=== PATIENT | female | born 1955 | race Caucasian/White ===

== ENCOUNTER → 2017-07-12 | Outpatient (CLI) | payer OTHER ==
[~2017-07-12] MED LIST: ASPIRIN325 PO; CENTRUM SILVER1 EAC4 PO; CIPRO500 M1 PO; FLAGYL500 M1 PO; IRON325 PO; METOPROLOL SUCC50 MG PO; SIMVASTATIN40 MG PO
[2017-07-12 08:53] LABS: CHOLESTEROL 175 mg/dL (<200); HDL CHOLESTEROL 55 mg/dL (>40); LDL CHOLESTEROL 80 mg/dL (<100); SGOT 26 U/L (15-37); SGPT 43 U/L (30-65); TC:HDL 3.2 Ratio (Not establshd); TRIGLYCERIDE 201 mg/dL (<150); VLDL 40 mg/dL (<40)
[2017-07-12 09:07] LABS: SERUM ASSESSMENT Clear
== END ==
LOC: M.LAB 08:06
PROVIDERS: Internal Medicine Cardiovascular Disease
DX: E78.00 Pure hypercholesterolemia, unspecified (principal); I10 Essential (primary) hypertension; K57.30 Diverticulosis of large intestine without perforation or abscess without bleeding; E87.6 Hypokalemia; E83.42 Hypomagnesemia; Z98.890 Other specified postprocedural states

== ENCOUNTER → 2019-04-24 | Outpatient (CLI) | payer OTHER | LOC: M.RAD 09:05 | DX: Z12.31 Encounter for screening mammogram for malignant neoplasm of breast (principal) ==

== ENCOUNTER → 2021-04-08 | Outpatient (CLI) | payer OTHER | LOC: M.RAD 03-28 13:46 | PROVIDERS: ATTEND Family Medicine | DX: N60.02 Solitary cyst of left breast (principal); M85.88 Other specified disorders of bone density and structure, other site; R92.2 Inconclusive mammogram; Z78.0 Asymptomatic menopausal state ==

== ENCOUNTER → 2021-05-22 | Outpatient (CLI) | payer OTHER | LOC: M.RAD 16:06 | PROVIDERS: ATTEND Orthopaedic Surgery | DX: S66.313A Strain of extensor muscle, fascia and tendon of left middle finger at wrist and hand level, initial encounter (principal); M43.22 Fusion of spine, cervical region; M19.042 Primary osteoarthritis, left hand; X58.XXXA Exposure to other specified factors, initial encounter; Y93.89 Activity, other specified; Y92.89 Other specified places as the place of occurrence of the external cause; Y99.8 Other external cause status ==